=== PATIENT | female | born 1975 | race Two or more races ===

== ENCOUNTER 2022-10-04 07:21 | Emergency (ER) | payer OTHER ==
[2022-10-04 07:44] VITALS: BP 111/72; PULSE 86; RESP 16; TEMP 98; BMI 25.4
[2022-10-04] MEDS ORDERED: ACETAMINOPHEN 1000 MG/100 ML BAG IVPB ONE (08:12)
[2022-10-04] MEDS ORDERED: ACETAMINOPHEN INJECTION 100 ML IVPB ONE (08:25)
[2022-10-04 08:43] LABS: URINE APPEARANCE CLEAR; URINE BILIRUBIN NEGATIVE (NEGATIVE); URINE COLOR YELLOW; URINE GLUCOSE (UA) NEGATIVE (NEGATIVE); URINE KETONE NEGATIVE (NEGATIVE); URINE LEUK ESTERASE NEGATIVE (NEGATIVE); URINE NITRITE NEGATIVE (NEGATIVE); URINE PROTEIN NEGATIVE (NEGATIVE); URINE UROBILINOGEN 0.2 mg/dL (0.2-1.0)
[2022-10-04 08:45] LABS: BASO % 0.5 % (0-2.0); EOS % 1.2 % (0-4.5); HEMATOCRIT 33.1 % (32.4-45.2); LYMPH % 29.5 % (8-40); MCH 25.9 pg (25.7-33.7); MCHC 33.1 g/dl (32.0-36.0); MEAN CELL VOLUME 78.2 fl (80-96); MEAN PLT VOLUME 8.5 fl (7.5-11.1); NEUT % 61.8 % (42.8-82.8); PLATELET COUNT 356 10^3/uL (134-434); RBC 4.23 M/mm3 (3.60-5.2); RDW 16.1 % (11.6-15.6); WHITE BLOOD COUNT 7.3 K/mm3 (4.0-10.0)
[2022-10-04 08:54] LABS: CALCIUM 9.1 mg/dL (8.5-10.1)
[2022-10-04 08:55] LABS: BLOOD UREA NITROGEN 7.3 mg/dL (7-18)
[2022-10-04 08:58] LABS: CREATININE 0.6 mg/dL (0.55-1.3)
[2022-10-04 09:00] LABS: BILIRUBIN,TOTAL 0.4 mg/dL (0.2-1); TOT PROT 7.6 g/dl (6.4-8.2)
== END 2022-10-04 10:45 | disposition home or self-care (01) ==
LOC: JER 07:21
PROC: 3E033NZ Introduction of Analgesics, Hypnotics, Sedatives into Peripheral Vein, Percutaneous Approach (ICD-10-PCS; principal; 2022-10-04)
DX: M54.50 Low back pain, unspecified (principal); R10.31 Right lower quadrant pain
CPT/HCPCS: 36415; 74177-TC; 80053; 81003; 83690; 84703; 85025; 87086; 99285-25; Q9967

== ENCOUNTER 2022-10-05 05:49 | Emergency (ER) | payer OTHER ==
[2022-10-05 05:58] VITALS: BP 126/73; PULSE 96; RESP 18; TEMP 97.6; BMI 21.9
[2022-10-05] MEDS ORDERED: KETOROLAC TROMETHAMINE 30 MG/1 ML VIAL IM ONE (07:46)
[2022-10-05] MEDS ORDERED: KETOROLAC TROMETHAMINE 30 MG/1 ML VIAL ONE (07:48)
[2022-10-05] MEDS ORDERED: LIDOCAINE 5% TOPICAL PATCH TP ONE (08:02)
[2022-10-05] MEDS ORDERED: METHOCARBAMOL 500 MG TABLET PO ONE (08:02)
[2022-10-05] MEDS ORDERED: METHOCARBAMOL 500 MG TABLET ONE (08:19)
[2022-10-05] MEDS ORDERED: LIDOCAINE 5% TOPICAL PATCH ONE (08:20)
[2022-10-05 08:38] LABS: EPI CELLS 20 /uL (0-25.1); HYALINE CASTS 1 /uL (0-3.1); URINE APPEARANCE CLEAR; URINE BACTERIA 93 /uL (0-1359); URINE BILIRUBIN NEGATIVE (NEGATIVE); URINE COLOR YELLOW; URINE GLUCOSE (UA) NEGATIVE (NEGATIVE); URINE KETONE NEGATIVE (NEGATIVE); URINE LEUK ESTERASE TRACE (NEGATIVE); URINE NITRITE NEGATIVE (NEGATIVE); URINE PROTEIN NEGATIVE (NEGATIVE); URINE RBC 8 /uL (0-23.9); URINE UROBILINOGEN 0.2 mg/dL (0.2-1.0); URINE WBC 12 /uL (0-25.8)
[2022-10-05 08:45] LABS: HCG,QUALITATIVE URINE Negative
[2022-10-05] MEDS ORDERED: LIDOCAINE PATCH REMOVAL MC ONE (22:00)
== END 2022-10-05 10:31 | disposition home or self-care (01) ==
LOC: JER 05:49
PROC: 3E0233Z Introduction of Anti-inflammatory into Muscle, Percutaneous Approach (ICD-10-PCS; principal; 2022-10-05)
DX: M54.41 Lumbago with sciatica, right side (principal); X50.0XXA Overexertion from strenuous movement or load, initial encounter
CPT/HCPCS: 81003; 84703; 87077; 87086; 96372; 99284-25